=== PATIENT | male | born 1940 | race Caucasian/White ===

== ENCOUNTER → 2016-08-22 | Outpatient (CLI) | payer BC ==
[~2016-08-22] MED LIST: DSWCR TOP; KETO2CRE14 TOP; KETO2SHA5 TOP; METO-157 PO; ONDA4TAB10 SL; OXYC-57 PO; OXYC1TAB3 PO; SILO8CAP PO; TAMS0.4C38 PO
== END | disposition home or self-care (01) ==
LOC: C.LABSPEC 17:42
PROVIDERS: ATTEND Podiatrist Primary Podiatric Medicine
DX: L60.3 Nail dystrophy (principal)

== ENCOUNTER 2016-09-24 12:05 | Emergency (ER) | payer BC ==
[~2016-09-24] VITALS: Ht 177.8 cm; Wt 85.6 kg
[~2016-09-24 12:05] MED LIST changes: -KETO2SHA5 TOP; -METO-157 PO; -ONDA4TAB10 SL; -OXYC-57 PO; -OXYC1TAB3 PO; -TAMS0.4C38 PO
[2016-09-24 12:07] VITALS: TEMP 36.3; Ht 177.8 cm; Wt 85.6 kg
[2016-09-24] MEDS ORDERED: SODIUM CHLORIDE 0.9% 1000ML 500 ML IV ONE (12:34)
[2016-09-24 12:41] LABS: HEMATOCRIT 45.5 % (42-52); MEAN CORPUSCULAR HEMOGLOBIN 30.2 pg (25-34); MEAN CORPUSCULAR HGB CONC 35.2 g/dl (32-36); MEAN PLATELET VOLUME 10.3 fL (7.4-10.4); PLATELET COUNT 178 K/uL (130-400); RED BLOOD COUNT 5.29 M/uL (4.7-6.1); WHITE BLOOD COUNT 6.82 K/uL (4.8-10.8)
[2016-09-24 12:50] LABS: INR 1.1 (0.9-1.1); PARTIAL THROMBOPLASTIN RATIO 1.1; PROTHROMBIN TIME (PATIENT) 11.4 SECONDS (9.0-12.0)
[2016-09-24 12:55] LABS: BUN/CREATININE RATIO 12.4 (10-20); CALCIUM 8.9 mg/dl (8.5-10.1); CREATININE 1.6 mg/dl (0.60-1.40)
[2016-09-24] MEDS ORDERED: KETO2SHA5 TOP (13:01)
[2016-09-24] MEDS ORDERED: ONDANSETRON INJ 2 MG/ML 2 ML VIAL IV STA (13:34)
[2016-09-24] MEDS: MoRPHine SULFATE 4 MG/ML 1 ML CARP\\VIAL IV PRN ×2 (13:46→14:37)
--- NOTE | 2016-09-24 13:49 | EMERGENCY ROOM VISIT NOTE ---
History Report prepared by River: Taty Miller Under the Supervision of: Dr. Bull Hatch D.O. First contact with patient: 13:31 Chief Complaint: ABDOMINAL PAIN Stated Complaint: DIARRHEA, VOMITING, PAIN Nursing Triage Summary: Patient reports left side abd pain that radiates into his left back and left scrotum. Patient did have an episode of diarrhea and n/v this am after the pain started. Sent by [facility] for eval History of Present Illness The patient is a 75 year old male who presents to the Emergency Room with complaints of left abdominal pain. The patient started having back pain but then had an acute onset of left lower quadrant pain this morning. He rates his discomfort as a 5/10. The patient noticed some hematuria. He has a history of bladder stones. He has not been seen by his urologist in a few years for this complaint. The patient call his primary care physician and was sent to the emergency department for the possibility of kidney stone. He states the pain is moderate to severe and radiates into his left groin and his left testicle. He does have some back pain which is reproducible and thought that this was just musculoskeletal pain that he has had in the past. He also has been expressing nausea vomiting as well as a few loose bowel movements. He denies having any fever. He denies having any recent falls or injuries. The patient has moderate to severe pain at this time. Source of History: patient Onset: [employer] Position: abdomen Symptom Intensity: 5/10 Timing: other (persistent) Associated Symptoms: + back pain, + nausea, + urinary symptoms, + vomiting, No fevers Review of Systems See HPI for pertinent positives & negatives. A total of 10 systems reviewed and were otherwise negative. Social History Smoking Status: Former Smoker Marital Status: single Housing Status: lives alone Occupation Status: retired Current/Historical Medications Scheduled Ketoconazole (Topical) (Nizoral), 1 APPLN TOP 2XWK Ondasetron Odt (Zofran Odt), 4 MG SL Q6H Tamsulosin Hcl (Flomax), 0.4 MG PO DAILY Scheduled PRN Desonide 0.05% (Desowen 0.05%), 1 APPLN TOP BID PRN for PRN Oxycodone Immediate Rel Tab (Roxicodone Ir), 1-2 TAB PO Q4H PRN for Severe Pain Allergies Coded Allergies: No Known Allergies (Unverified , 09/24/16) Physical Exam Vital Signs Date Time Temp Pulse Resp B/P Pulse Ox O2 Delivery O2 Flow Rate FiO2 09/24/16 16:15 83 20 147/84 95 09/24/16 15:35 76 20 152/87 94 Room Air 09/24/16 13:28 68 18 162/80 97 Room Air 09/24/16 12:07 36.3 84 18 181/100 98 Room Air Physical Exam GENERAL: Patient is awake and alert. He appears somewhat anxious and uncomfortable. EYES: The conjunctivae are clear. The pupils are round and reactive. EARS, NOSE, MOUTH AND THROAT: The nose is without any evidence of any deformity. Mucous membranes are moist tongue is midline NECK: The neck is nontender and supple. RESPIRATORY: Normal respiratory effort is noted there is no evidence of wheezing rhonchi or rales CARDIOVASCULAR: Regular rate and rhythm noted there no murmurs rubs or gallops normal S1 normal S2 GASTROINTESTINAL: The abdomen is soft. There is tenderness in the left lower quadrant. There is no guarding or rigidity. BACK: No midline tenderness or or step-off noted range of motion in flexion extension as well as rotation no signs of muscle spasm noted : Circumcised male genitalia was noted. Testicles were descended and nontender bilaterally. There were no inguinal masses noted. MUSCULOSKELETAL/EXTREMITIES: There is no evidence of gross deformity full range of motion is noted in the hips and shoulders SKIN: There is no obvious evidence of any rash. There are no petechiae, pallor or cyanosis noted. NEUROLOGIC: Patient is awake alert and oriented x3 strength is symmetric patellar reflexes are 2+ bilaterally Medical Decision & Procedures ER Provider Diagnostic Interpretation: This CT scan was reviewed and interpreted by the radiologist and reviewed by myself. ABDOMEN AND PELVIS CT WITHOUT CONTRAST IMPRESSION: 1. 3 mm obstructing calculus distal left ureter several centimeters proximal to the left ureterovesical junction. 2. Mild/moderate left hydroureteronephrosis. 3. Nonobstructing right renal calcification. Electronically signed by: Matheus Woods M.D. 09/24/2016 2:19 PM Laboratory Results 09/24/16 12:26 09/24/16 12:26 Test 09/24/16 12:26 09/24/16 15:34 Red Blood Count 5.29 M/uL (4.7-6.1) Mean Corpuscular Volume 86.0 fL (80-100) Mean Corpuscular Hemoglobin 30.2 pg (25-34) Mean Corpuscular Hemoglobin Concent 35.2 g/dl (32-36) RDW Standard Deviation 40.5 fL (36.4-46.3) RDW Coefficient of Variation 12.8 % (11.5-14.5) Mean Platelet Volume 10.3 fL (7.4-10.4) Prothrombin Time 11.4 SECONDS (9.0-12.0) Prothromb Time International Ratio 1.1 (0.9-1.1) Activated Partial Thromboplast Time 27.9 SECONDS (21.0-31.0) Partial Thromboplastin Ratio 1.1 Anion Gap 10.0 mmol/L (3-11) Est Creatinine Clear Calc Drug Dose 42.5 ml/min Estimated GFR () 48.8 Estimated GFR (Non- 42.1 BUN/Creatinine Ratio 12.4 (10-20) Calcium Level 8.9 mg/dl (8.5-10.1) Urine Color DK YELLOW Urine Appearance CLOUDY (CLEAR) Urine pH 5.5 (4.5-7.5) Urine Specific [place] 1.023 (1.000-1.030) Urine Protein 1+ (NEG) Urine Glucose (UA) NEG (NEG) Urine Ketones TRACE (NEG) Urine Occult Blood 3+ (NEG) Urine Nitrite NEG (NEG) Urine Bilirubin NEG (NEG) Urine Urobilinogen NEG (NEG) Urine Leukocyte Esterase TRACE (NEG) Urine WBC (Auto) 1-5 /hpf (0-5) Urine RBC (Auto) >30 /hpf (0-4) Urine Hyaline Casts (Auto) 0 /lpf (0-5) Urine Epithelial Cells (Auto) 20-30 /lpf (0-5) Urine Bacteria (Auto) 1+ (NEG) Urine Pathogenic Casts /lpf (0) Urine Mucus PRESENT (NONE PRSENT) Laboratory results per my review. Medications Administered Medications (Trade) Dose Ordered Sig/Noah Route Start Time Stop Time Status Last Admin Dose Admin Sodium Chloride (Nss 1000ml) 500 ml @ 999 mls/hr Q31M ONCE IV 09/24/16 12:34 09/24/16 13:04 DC 2/5/17 12:34 999 MLS/HR Morphine Sulfate (MoRPHine SULFATE INJ) 4 mg Q15M PRN IV 09/24/16 13:45 09/24/16 16:50 DC 09/24/16 14:37 4 MG Ondansetron HCl 4 mg 4 mg NOW STAT IV 09/24/16 13:34 09/24/16 13:35 DC 09/24/16 13:46 4 MG Sodium Chloride (Nss 500ml) 500 ml @ 999 mls/hr Q31M STAT IV 09/24/16 14:24 09/24/16 14:54 DC 09/24/16 14:24 999 MLS/HR Tamsulosin HCl (Flomax Cap) 0.4 mg NOW ONCE PO 09/24/16 14:30 09/24/16 14:31 DC 09/24/16 14:36 0.4 MG ED Course 1340: The patient was evaluated in room B10. A complete history and physical examination were performed. 1416: I reevaluated the patient. He is feeling a little better. 1424: NSS 500 ml @ 999 mls/hr IV. 1430: Flomax 0.4 mg PO. 1600: I reevaluated the patient. He is feeling much better. I discussed his results and discharge instructions and he verbalized complete understanding and agreement. Medical Decision Prior records/ancillary studies reviewed. Triage Nursing notes reviewed. The patient's history was concerning for abdominal pain. Differential diagnosis: Etiologies such as appendicitis, diverticulitis, PUD, biliary pathology, UTI, pancreatitis, obstruction, mesenteric ischemia, aortic pathology, infections, inflammatory bowel disease, renal colic, as well as others were entertained. The patient is a 75-year-old male who presented to the emergency department for an evaluation of left lower quadrant abdominal pain with radiation to the left testicle. The patient has a history of bladder stones in the past. He was treated with IV fluids IV pain medicine and IV antiemetics. He was also given Flomax in the emergency department. On subsequent reevaluation he was feeling much better. I discussed the patient's laboratory and radiographic studies with him. He was found have a distal left ureteral calculus which was only 3 millimeters. I explained him that it is a high possibility that he will pass this kidney stone without too much difficulty. He was encouraged to rest and avoid any strenuous activity. He was also encouraged to continue all medications as prescribed. He was also encouraged to have his laboratory studies repeated because his creatinine was mildly elevated compared to baseline. Otherwise she was encouraged to return to the emergency Department immediately if symptoms change worsen or the need arises. Impression Primary Impression: Left ureteral calculus Scribe Attestation The scribe's documentation has been prepared under my direction and personally reviewed by me in its entirety. I confirm that the note above accurately reflects all work, treatment, procedures, and medical decision making performed by me. Departure Information Dispostion Home / Self-Care Prescriptions Tamsulosin Hcl (FLOMAX) 0.4 Mg Cap 0.4 MG PO DAILY, #10 CAP Prov: Bull Hatch, DO 09/24/16 Ondasetron Odt (ZOFRAN ODT) 4 Mg Tab 4 MG SL Q6H for Nausea, #10 TAB Prov: Bull Hatch, DO 09/24/16 Oxycodone Immediate Rel Tab (ROXICODONE IR) 5 Mg Tab 1-2 TAB PO Q4H Y for Severe Pain, #24 TAB Prov: Bull Hatch, DO 09/24/16 Referrals Bull Lockwood M.D. (PCP) Patient Instructions My [facility] [address] Additional Instructions Continue to drink plenty clear liquids. Call your urologist to schedule a follow -up appointment. Rest and avoid any strenuous activity. Continue using Motrin and Tylenol as directed for pain.
--- NOTE | 2016-09-24 14:20 | DIAGNOSTIC IMAGING REPORT ---
ABDOMEN AND PELVIS CT WITHOUT CONTRAST CT DOSE: 377.79 mGy.cm HISTORY: Pain. Neuropathy. left flank pain TECHNIQUE: Multiaxial CT images of the abdomen and pelvis were performed without contrast. COMPARISON STUDY: 08/24/2015 FINDINGS: Lung bases are clear. Several nonspecific hypodensities within the liver are present and appear to be similar as compared to the prior study. Right kidney demonstrates a nonobstructing calcification at its mid pole. Left kidney shows mild hydroureteronephrosis. There is trace amount of infiltrative change surrounding the left kidney. There is a 3 mm obstructing calculus distal left ureter several centimeters proximal to the left ureterovesical junction. Bladder is midline. Bowel pattern is nonobstructive. Osseous structures show mild to moderate degenerative change throughout similar compared to the prior study. There are findings of minimal bibasilar dependent atelectatic change. There is a small fixed lateral hernia. IMPRESSION: 1. 3 mm obstructing calculus distal left ureter several centimeters proximal to the left ureterovesical junction. 2. Mild/moderate left hydroureteronephrosis. 3. Nonobstructing right renal calcification. Electronically signed by: Matheus Woods M.D. 09/24/2016 2:19 PM Dictated Date/Time: 09/24/2016 2:14 PM
[2016-09-24] MEDS ORDERED: SODIUM CHLORIDE 0.9% 500ML 500 ML IV STA (14:24)
[2016-09-24] MEDS ORDERED: TAMSULOSIN HCL 0.4 MG CAP PO ONE (14:30)
[2016-09-24] MEDS ORDERED: TAMS0.4C38 PO (14:42)
[2016-09-24] MEDS ORDERED: OXYC1TAB3 PO (14:42)
[2016-09-24] MEDS ORDERED: ONDA4TAB10 SL (14:42)
[2016-09-24 15:48] LABS: URINE APPEARANCE CLOUDY (CLEAR); URINE BILIRUBIN NEG (NEG); URINE COLOR DK YELLOW; URINE EPITHELIAL CELL AUTO 20-30 /lpf (0-5); URINE NITRITE NEG (NEG); URINE PH 5.5 (4.5-7.5); URINE SPECIFIC GRAVITY 1.023 (1.000-1.030); UROBILINOGEN NEG (NEG)
[2016-09-24 15:50] LABS: MANUAL MICROSCOPIC REQUIRED? NO; REVIEW REQ? YES
[2016-09-24 16:01] LABS: URINE MUCUS PRESENT (NONE PRSENT)
[2016-09-24 16:15] VITALS: BP 147/84; PULSE 83; O2SAT 95
[2016-09-24 16:16] LABS: ZZUR CULT IF INDIC CLEAN CATCH YES
== END 2016-09-24 16:17 | disposition home or self-care (01) ==
LOC: C.EDB 12:06
DX: N20.1 Calculus of ureter (principal); Z87.442 Personal history of urinary calculi; Z87.891 Personal history of nicotine dependence

== ENCOUNTER 2016-09-29 09:53 | Emergency (ER) | payer BC ==
[~2016-09-29] VITALS: Ht 177.8 cm; Wt 85.1 kg
[~2016-09-29 09:53] MED LIST changes: -KETO2CRE14 TOP; +KETO2SHA5 TOP; +ONDA4TAB10 SL; +OXYC1TAB3 PO; -SILO8CAP PO; +TAMS0.4C38 PO
[2016-09-29 09:59] VITALS: Ht 177.8 cm; Wt 85.1 kg
[2016-09-29] MEDS ORDERED: HYDROmorphone INJ 1 MG/ML SYR IV STA ×2 (10:08→10:22)
[2016-09-29] MEDS ORDERED: ACETAMINOPHEN 500 MG TAB PO STA (10:08)
[2016-09-29] MEDS ORDERED: SODIUM CHLORIDE 0.9% 1000ML 1,000 ML IV STA (10:08)
[2016-09-29] MEDS ORDERED: KETOROLAC TROMETHAMINE 30 MG/ML VIAL IV STA (10:08)
--- NOTE | 2016-09-29 10:55 | EMERGENCY ROOM VISIT NOTE ---
History Report prepared by River: Adi Caballero Under the Supervision of: Dr. Reynaldo Rodrigues M.D. First contact with patient: 10:07 Chief Complaint: FLANK PAIN Stated Complaint: LEFT SIDE PAIN, LOWER BACK/KIDNEY STONES History of Present Illness The patient is a 75 year old male who presents to the Emergency Room with complaints of severe and persistent left sided flank pain starting this morning. He took Oxycodone about 5 hours ago with some relief. The patient was recently diagnosed with a kidney stone. The patient denies chest pain, shortness of breath, or any other complaints. Source of History: patient Onset: this morning Position: other (left sided flank) Symptom Intensity: severe Timing: other (persistent) Modifying Factors (Relieving): other (Oxycodone with some relief) Associated Symptoms: No SOB, No chest pain Review of Systems See HPI for pertinent positives & negatives. A total of 10 systems reviewed and were otherwise negative. Past Medical & Surgical Medical Problems: (1) H/O blood clots (2) Urinary problem Family History Diabetes mellitus FH: cancer FH: heart disease Hypertension Social History Smoking Status: Never Smoker Marital Status: single Housing Status: lives alone Occupation Status: retired Current/Historical Medications Scheduled Ketoconazole (Topical) (Nizoral), 1 APPLN TOP 2XWK Tamsulosin Hcl (Flomax), 0.4 MG PO DAILY Scheduled PRN Desonide 0.05% (Desowen 0.05%), 1 APPLN TOP BID PRN for PRN Metoclopramide (Reglan), 10 MG PO Q6H PRN for Nausea Oxycodone Immediate Rel Tab (Roxicodone Ir), 1-2 TAB PO Q4H PRN for Severe Pain Oxycodone/Acetaminophen 5MG/325MG (Percocet 5MG/325MG), 1-2 TABLETS PO Q4H PRN for Pain Allergies Coded Allergies: No Known Allergies (Unverified , 09/24/16) Physical Exam Vital Signs Date Time Temp Pulse Resp B/P Pulse Ox O2 Delivery O2 Flow Rate FiO2 09/29/16 13:28 74 16 133/86 94 Room Air 09/29/16 13:01 89 Room Air 09/29/16 12:58 75 18 112/76 90 Room Air 09/29/16 11:36 79 18 138/81 94 Room Air 09/29/16 09:59 105 18 158/97 96 Room Air Physical Exam CONSTITUTIONAL: Mild distress HEENT: No icterus, moist mucous membranes NECK: No meningismus, trachea is midline. CARDIOVASCULAR: Regular rate, normal perfusion RESPIRATORY: Unlabored breathing. Clear to auscultation. GASTROINTESTINAL: Non-tender GENITOURINARY: Mild flank tenderness MUSCULOSKELETAL: Full range of motion NEUROLOGIC: No acute gross focal deficits. PSYCHIATRIC: Normal affect SKIN: Normal for ethnicity. Medical Decision & Procedures ER Provider Diagnostic Interpretation: X-ray results as stated below per interpretation by me and the radiologist. KUB CLINICAL HISTORY: check stone flank pain COMPARISON STUDY: 09/24/2016 FINDINGS: nonobstructive bowel pattern. Several pelvic vascular calcifications. Lumbar scoliosis. IMPRESSION: No acute process Electronically signed by: Matheus Woods M.D. 09/29/2016 11:35 AM Dictated Date/Time: 09/29/2016 11:34 AM Laboratory Results 09/29/16 10:40 Red Blood Count 5.19, Mean Corpuscular Volume 84.2, Mean Corpuscular Hemoglobin 29.7, Mean Corpuscular Hemoglobin Concent 35.2, Mean Platelet Volume 9.7, Neutrophils (%) (Auto) 68.0, Lymphocytes (%) (Auto) 18.5, Monocytes (%) (Auto) 11.3, Eosinophils (%) (Auto) 0.3, Basophils (%) (Auto) 0.1, Neutrophils # (Auto ) 5.37, Lymphocytes # (Auto) 1.46, Monocytes # (Auto) 0.89, Eosinophils # (Auto ) 0.02, Basophils # (Auto) 0.01 09/29/16 10:40 Test 09/29/16 10:40 09/29/16 13:08 White Blood Count 7.89 K/uL (4.8-10.8) Red Blood Count 5.19 M/uL (4.7-6.1) Hemoglobin 15.4 g/dL (14.0-18.0) Hematocrit 43.7 % (42-52) Mean Corpuscular Volume 84.2 fL (80-100) Mean Corpuscular Hemoglobin 29.7 pg (25-34) Mean Corpuscular Hemoglobin Concent 35.2 g/dl (32-36) Platelet Count 180 K/uL (130-400) Mean Platelet Volume 9.7 fL (7.4-10.4) Neutrophils (%) (Auto) 68.0 % Lymphocytes (%) (Auto) 18.5 % Monocytes (%) (Auto) 11.3 % Eosinophils (%) (Auto) 0.3 % Basophils (%) (Auto) 0.1 % Neutrophils # (Auto) 5.37 K/uL (1.4-6.5) Lymphocytes # (Auto) 1.46 K/uL (1.2-3.4) Monocytes # (Auto) 0.89 K/uL (0.11-0.59) Eosinophils # (Auto) 0.02 K/uL (0-0.5) Basophils # (Auto) 0.01 K/uL (0-0.2) RDW Standard Deviation 38.6 fL (36.4-46.3) RDW Coefficient of Variation 12.7 % (11.5-14.5) Immature Granulocyte % (Auto) 1.8 % Immature Granulocyte # (Auto) 0.14 K/uL (0.00-0.02) Anion Gap 9.0 mmol/L (3-11) Est Creatinine Clear Calc Drug Dose 40.0 ml/min Estimated GFR () 45.4 Estimated GFR (Non- 39.1 BUN/Creatinine Ratio 10.5 (10-20) Calcium Level 9.3 mg/dl (8.5-10.1) Urine Color YELLOW Urine Appearance CLEAR (CLEAR) Urine pH 5.5 (4.5-7.5) Urine Specific [place] 1.019 (1.000-1.030) Urine Protein TRACE (NEG) Urine Glucose (UA) NEG (NEG) Urine Ketones 1+ (NEG) Urine Occult Blood 2+ (NEG) Urine Nitrite NEG (NEG) Urine Bilirubin NEG (NEG) Urine Urobilinogen NEG (NEG) Urine Leukocyte Esterase NEG (NEG) Urine WBC (Auto) 1-5 /hpf (0-5) Urine RBC (Auto) 5-10 /hpf (0-4) Urine Hyaline Casts (Auto) 1-5 /lpf (0-5) Urine Epithelial Cells (Auto) 10-20 /lpf (0-5) Urine Bacteria (Auto) NEG (NEG) Labs reviewed by ED physician. Medications Administered Medications (Trade) Dose Ordered Sig/Noah Route Start Time Stop Time Status Last Admin Dose Admin Acetaminophen (Tylenol Tab) 1,000 mg NOW STAT PO 09/29/16 10:08 09/29/16 10:10 DC 09/29/16 10:59 1,000 MG Ketorolac Tromethamine 15 mg 15 mg NOW STAT IV 09/29/16 10:08 09/29/16 10:10 DC 09/29/16 11:01 15 MG Sodium Chloride (Nss 1000ml) 1,000 ml @ 0 mls/hr Q0M STAT IV 09/29/16 10:08 09/29/16 10:10 DC 09/29/16 11:00 999 MLS/HR Hydromorphone HCl (Dilaudid Inj) 1 mg PRN STAT IV 09/29/16 10:08 09/29/16 10:10 DC 09/29/16 11:03 1 MG ED Course 1007: Past medical records reviewed. The patient was evaluated in room C10. A complete history and physical examination was performed. 1008: Dilaudid Inj 1 mg IV, Sodium Chloride 1000 ml @ 0 mls/hr Wide Open IV, Toradol Inj 15 mg IV, Tylenol Tab 1000 mg PO 1331: Upon reexamination the patient is resting comfortably. I discussed results and treatment plan with the patient. He verbalizes agreement and understanding. The patient is ready for discharge. Medical Decision Differential diagnosis includes but is not limited to complication of kidney stone. 75-year-old with known kidney stone presented to the emergency room for intractable pain and occasional nausea. He noted that he is only taking 1 Percocet infrequently. He was hydrated in the emergency room and felt comfortable on reexam. We discussed optimal analgesic control with 1-2 Percocets and less expensive antibiotic, Reglan. Patient understands to follow- up with his doctors. He had no further concerns was comfortable with the plan. Impression Primary Impression: Kidney stone Scribe Attestation The scribe's documentation has been prepared under my direction and personally reviewed by me in its entirety. I confirm that the note above accurately reflects all work, treatment, procedures, and medical decision making performed by me. Departure Information Dispostion Being Evaluated By Hospitalist Prescriptions Metoclopramide (Reglan) 10 Mg Tab 10 MG PO Q6H Y for Nausea, #20 TAB Prov: Reynaldo Rodrigues MD 09/29/16 Oxycodone/Acetaminophen 5MG/325MG (PERCOCET 5MG/325MG) Tab 1-2 TABLETS PO Q4H Y for Pain, #24 TAB Prov: Reynaldo Rodrigues MD 09/29/16 Referrals Bull Lockwood M.D. (PCP) Patient Instructions My [facility]
[2016-09-29 10:56] LABS: BASO % 0.1 %; BASO ABS # 0.01 K/uL (0-0.2); COMPLETE YES; EOS % 0.3 %; HEMATOCRIT 43.7 % (42-52); IG% 1.8 %; LYMPH % 18.5 %; LYMPH ABS # 1.46 K/uL (1.2-3.4); MEAN CELL VOLUME 84.2 fL (80-100); MEAN CORPUSCULAR HEMOGLOBIN 29.7 pg (25-34); MEAN CORPUSCULAR HGB CONC 35.2 g/dl (32-36); MEAN PLATELET VOLUME 9.7 fL (7.4-10.4); MONO % 11.3 %; PLATELET COUNT 180 K/uL (130-400); RED BLOOD COUNT 5.19 M/uL (4.7-6.1); WHITE BLOOD COUNT 7.89 K/uL (4.8-10.8)
[2016-09-29 11:12] LABS: CALCIUM 9.3 mg/dl (8.5-10.1); POTASSIUM 3.9 mmol/L (3.5-5.1)
[2016-09-29 11:28] LABS: BUN/CREATININE RATIO 10.5 (10-20); CREATININE 1.7 mg/dl (0.60-1.40)
--- NOTE | 2016-09-29 11:37 | DIAGNOSTIC IMAGING REPORT ---
KUB CLINICAL HISTORY: check stone flank pain COMPARISON STUDY: 09/24/2016 FINDINGS: nonobstructive bowel pattern. Several pelvic vascular calcifications. Lumbar scoliosis. IMPRESSION: No acute process Electronically signed by: Matheus Woods M.D. 09/29/2016 11:35 AM Dictated Date/Time: 09/29/2016 11:34 AM
[2016-09-29] MEDS ORDERED: OXYC-57 PO (13:24)
[2016-09-29] MEDS ORDERED: METO-157 PO (13:26)
[2016-09-29 13:28] VITALS: BP 133/86; PULSE 74; O2SAT 94
[2016-09-29 13:29] LABS: URINE APPEARANCE CLEAR (CLEAR); URINE BILIRUBIN NEG (NEG); URINE COLOR YELLOW; URINE NITRITE NEG (NEG); URINE PH 5.5 (4.5-7.5); URINE SPECIFIC GRAVITY 1.019 (1.000-1.030); UROBILINOGEN NEG (NEG)
[2016-09-29 13:45] LABS: MANUAL MICROSCOPIC REQUIRED? NO; REVIEW REQ? NO
== END 2016-09-29 13:38 | disposition home or self-care (01) ==
LOC: C.EDB 09:54 → C.EDC 13:38
DX: N20.0 Calculus of kidney (principal); Z83.2 Family history of diseases of the blood and blood-forming organs and certain disorders involving the immune mechanism; Z87.448 Personal history of other diseases of urinary system; Z79.899 Other long term (current) drug therapy; Z83.3 Family history of diabetes mellitus; Z80.9 Family history of malignant neoplasm, unspecified; Z82.49 Family history of ischemic heart disease and other diseases of the circulatory system

== ENCOUNTER → 2016-11-13 | Outpatient (CLI) | payer BC ==
[~2016-11-13] MED LIST changes: +METO-157 PO; -ONDA4TAB10 SL; +OXYC-57 PO
== END | disposition home or self-care (01) ==
LOC: C.PATHSPEC 08:05
PROVIDERS: ATTEND Podiatrist Primary Podiatric Medicine
DX: B07.0 Plantar wart (principal)

== ENCOUNTER → 2017-03-29 | Outpatient (CLI) | payer BC ==
--- NOTE | 2017-03-29 11:56 | DIAGNOSTIC IMAGING REPORT ---
KUB CLINICAL HISTORY: Nephrolithiasis. COMPARISON STUDY: CT of the abdomen and pelvis September 24, 2016 and KUB September 29, 2016. FINDINGS: A right pelvic calcification reflects a phlebolith. Note is made of a 3 mm right renal calculus. No additional urinary calculi are identified. There is mild to moderate dextroscoliosis of the lumbar spine. Bowel gas pattern is normal. IMPRESSION: 1. 3 mm right renal calculus. 2. No ureteral calculi identified. Electronically signed by: Ramin Chand M.D. 03/29/2017 11:54 AM Dictated Date/Time: 03/29/2017 11:53 AM
--- NOTE | 2017-04-02 12:46 | CODING QUERY MEDICAL NECESSITY ---
CQSUPPORTING DIAGNOSIS NEEDED A supporting diagnosis is required for the test/procedure performed on this patient in order for us to be reimbursed by the patient's insurance. Please provide a supporting diagnosis for the following test/procedure listed below next to the test name along with your signature. *If there is no additional diagnosis for this patient that would support the following test/procedure please document that below next to the test/procedure. Test(s)/Procedure(s) that require a supporting diagnosis: DOS 03/29/17 PROSTATE SPECIFIC TEST (PSA) Provider Signature: Date: Thank you Citlaly [facility] Information Management Once completed, please kindly fax back to [phone] For questions please call [phone]
== END | disposition home or self-care (01) ==
LOC: C.RADBC 11:14
PROVIDERS: ATTEND Urology
DX: N20.0 Calculus of kidney (principal); N40.0 Benign prostatic hyperplasia without lower urinary tract symptoms

== ENCOUNTER → 2017-10-08 | Outpatient (CLI) | payer BC ==
[~2017-10-08] MED LIST changes: -METO-157 PO; -OXYC-57 PO
== END ==
LOC: C.RDSM 08:00
PROVIDERS: ATTEND Family Medicine Sports Medicine
DX: M79.644 Pain in right finger(s) (principal)